=== PATIENT | female | born 1965 | race Caucasian/White ===

== ENCOUNTER 2017-12-23 12:29 | Emergency (ER) | payer MEDICARE, MEDICAID ==
[~2017-12-23] VITALS: Ht 172.7 cm; Wt 90.9 kg
[~2017-12-23 12:29] MED LIST: ALBU8.5H8 IH; ALPR0.5T8 PO; ALPR1TAB2 PO; ASPI-845 PO; CHOL50004 PO; FLUT1DIS4 INH; HYDR-565 PO; METH-603 PO; OMEG1CAP PO; OMEP20CA10 PO; PRED20TA PO; SPIIN IH; SUMA100T PO
[2017-12-23] MEDS ORDERED: TETanus/Pertussis (Acell)/Diphther VAC/PF (Tdap-Adult) 0.5ml syringe IM ONE (13:35)
[2017-12-23 14:06] LABS: WHITE BLOOD COUNT 7.4 X10'3 (4.5-11.0)
[2017-12-23 14:15] LABS: ALANINE AMINOTRANSFERASE 25 U/L (12-78); ALBUMIN 3.4 G/DL (3.4-5.0); ALBUMIN/GLOBULIN RATIO 0.9 (1.1-1.5); ALKALINE PHOSPHATASE 124 IU/L (46-116); ANION GAP 10 (8-16); ASPARTATE AMINO TRANSFERASE 14 U/L (10-37); BILIRUBIN,TOTAL 0.3 MG/DL (0.1-1.0); BLOOD UREA NITROGEN 8 MG/DL (7-18); BUN/CREATININE RATIO 9.8 (6.6-38.0); CALCIUM 8.7 MG/DL (8.5-10.1); CHLORIDE 108 MMOL/L (99-107); CREATININE 0.82 MG/DL (0.40-0.90); GLUCOSE 111 MG/DL (70-104); POTASSIUM 4.1 MMOL/L (3.5-5.1); SODIUM 145 MMOL/L (135-145); TOTAL CARBON DIOXIDE 26.7 MMOL/L (24-32); TOTAL PROTEIN 7.1 G/DL (6.4-8.2); eGFR 73 ML/MIN
[2017-12-23 14:23] LABS: ETHANOL 0.229 GM/DL (0.0-0.010)
[2017-12-23 14:29] LABS: HEMATOCRIT 49.9 % (35.0-45.0); HEMOGLOBIN 16.8 g/dl (12.0-16.0); MEAN CORPUSCULAR HEMOGLOBIN 30.2 PG (27.0-31.0); MEAN CORPUSCULAR HGB CONC 33.6 % (33.0-36.5); MEAN CORPUSCULAR VOLUME 89.7 FL (78-98); PLATELET COUNT 467 X10'3 (140-440); RED BLOOD COUNT 5.56 X10'6 (4.20-5.60); RED CELL DISTRIBUTION WIDTH 16.5 % (11.5-14.5)
[2017-12-23 14:30] LABS: MEAN PLATELET VOLUME 7.9 FL (7.4-10.4)
[2017-12-23 15:07] LABS: ANISOCYTOSIS 1+; LARGE PLATELETS FEW; NUCLEATED RED BLOOD CELLS 1 /100WBC (0-0); PLATELET ESTIMATE INCREASED; TOTAL CELLS COUNTED 100
[2017-12-23 15:46] LABS: CLARITY,URINE CLEAR (Clear); COLOR,URINE STRAW (Yellow); GLUCOSE, URINE NEGATIVE (Neg); KETONES,URINE NEGATIVE (Neg); LEUKOCYTE ESTERASE ,URINE NEGATIVE (Neg); NITRITES, URINE NEGATIVE (Neg); OCCULT BLOOD,URINE NEGATIVE (Neg); PROTEIN,URINE NEGATIVE (Neg); UROBILINOGEN,URINE 0.2 E.U/dL (0.2-1.0)
[2017-12-23 15:49] LABS: UA COLLECTION TYPE VOIDED
[2017-12-23 15:51] LABS: URINE HCG NEGATIVE (NEG)
[2017-12-23 15:56] LABS: URINE AMPHETAMINE SCREEN NEGATIVE (Neg); URINE BARBITUATE SCREEN NEGATIVE (Neg); URINE BENZODIAZEPINES SCREEN POSITIVE (Neg); URINE CANNABINOID SCREEN POSITIVE (Neg); URINE COCAINE SCREEN NEGATIVE (Neg); URINE METHADONE SCREEN NEGATIVE (Neg); URINE OPIATE SCREEN NEGATIVE (Neg); URINE PHENCYCLIDINE SCREEN NEGATIVE (Neg)
[2017-12-23 17:23] VITALS: BP 110/66
== END 2017-12-23 17:26 | disposition home or self-care (01) ==
LOC: ER 12:30
DX: S51.812A Laceration without foreign body of left forearm, initial encounter (principal); F32.9 Major depressive disorder, single episode, unspecified; F41.9 Anxiety disorder, unspecified; G89.29 Other chronic pain; M54.5 Low back pain; F10.920 Alcohol use, unspecified with intoxication, uncomplicated; G43.909 Migraine, unspecified, not intractable, without status migrainosus; J44.9 Chronic obstructive pulmonary disease, unspecified; Z90.710 Acquired absence of both cervix and uterus; Z88.6 Allergy status to analgesic agent; Z88.0 Allergy status to penicillin; Z88.2 Allergy status to sulfonamides; Z88.8 Allergy status to other drugs, medicaments and biological substances; Z91.048 Other nonmedicinal substance allergy status; Z79.82 Long term (current) use of aspirin; F12.90 Cannabis use, unspecified, uncomplicated; X78.1XXA Intentional self-harm by knife, initial encounter; Y93.89 Activity, other specified; Y92.89 Other specified places as the place of occurrence of the external cause; Y99.8 Other external cause status
CPT/HCPCS: 36415; 80053; 80305; 80320; 81003; 81025; 84443; 85025; 99284

== ENCOUNTER 2018-01-23 12:41 | Emergency (ER) | payer MEDICARE, MEDICAID ==
[~2018-01-23] VITALS: Ht 167.6 cm; Wt 78.0 kg
[~2018-01-23 12:41] MED LIST changes: +HYDR-4353 PO; -HYDR-565 PO
[2018-01-23 13:21] LABS: BASOPHILS # (AUTO) 0.2 X10'3 (0-0.2); BASOPHILS % (AUTO) 1.8 % (0-1); EOSINOPHILS % (AUTO) 0.1 % (0-6); HEMATOCRIT 49.6 % (35.0-45.0); HEMOGLOBIN 16.5 g/dl (12.0-16.0); LYMPHOCYTES # (AUTO) 2.8 X10'3 (1.1-4.8); LYMPHOCYTES % (AUTO) 27.6 % (21-51); MEAN CORPUSCULAR HGB CONC 33.2 % (33.0-36.5); MEAN CORPUSCULAR VOLUME 90.2 FL (78-98); MEAN PLATELET VOLUME 8.4 FL (7.4-10.4); MONOCYTES # (AUTO) 1.2 X10'3 (0-0.9); MONOCYTES % (AUTO) 12.1 % (2-12); NEUTROPHILS # (AUTO) 5.9 X10'3 (1.8-7.7); NEUTROPHILS % (AUTO) 58.4 % (42-75); PLATELET COUNT 521 X10'3 (140-440); RED CELL DISTRIBUTION WIDTH 17.4 % (11.5-14.5); WHITE BLOOD COUNT 10.1 X10'3 (4.5-11.0)
[2018-01-23 13:45] LABS: ALANINE AMINOTRANSFERASE 34 U/L (12-78); ALBUMIN 3.9 G/DL (3.4-5.0); ALBUMIN/GLOBULIN RATIO 1.1 (1.1-1.5); ALKALINE PHOSPHATASE 94 IU/L (46-116); ANION GAP 11 (8-16); ASPARTATE AMINO TRANSFERASE 23 U/L (10-37); BILIRUBIN,TOTAL 0.7 MG/DL (0.1-1.0); BLOOD UREA NITROGEN 10 MG/DL (7-18); BUN/CREATININE RATIO 11.8 (6.6-38.0); CALCIUM 9.3 MG/DL (8.5-10.1); CHLORIDE 104 MMOL/L (99-107); CREATININE 0.85 MG/DL (0.40-0.90); ETHANOL < 0.010 GM/DL (0.0-0.010); GLUCOSE 123 MG/DL (70-104); SODIUM 143 MMOL/L (135-145); TOTAL CARBON DIOXIDE 27.7 MMOL/L (24-32); TOTAL PROTEIN 7.6 G/DL (6.4-8.2); eGFR 70 ML/MIN
[2018-01-23 13:59] LABS: URINE HCG NEGATIVE (NEG)
[2018-01-23 14:00] LABS: CLARITY,URINE SLIGHTLY CLOUDY (Clear); COLOR,URINE YELLOW (Yellow); GLUCOSE, URINE NEGATIVE (Neg); KETONES,URINE 15 mg/dl (Neg); LEUKOCYTE ESTERASE ,URINE NEGATIVE (Neg); NITRITES, URINE NEGATIVE (Neg); OCCULT BLOOD,URINE NEGATIVE (Neg); PROTEIN,URINE NEGATIVE (Neg); UROBILINOGEN,URINE 0.2 E.U/dL (0.2-1.0)
[2018-01-23] MEDS ORDERED: potassium Cl 20 mEq SR tablet PO ONE (14:00)
[2018-01-23 14:01] LABS: UA COLLECTION TYPE CLN CATCH MIDSTREAM
[2018-01-23] MEDS ORDERED: GABA-530 PO (14:10)
[2018-01-23] MEDS ORDERED: FURO-150 PO (14:10)
[2018-01-23] MEDS ORDERED: AMIT-1 (14:10)
[2018-01-23 14:11] LABS: BACTERIA,URINE FEW /HPF (Neg); RBC,URINE 0-2 /HPF (0-2); WBC,URINE 0-4 /HPF (0-4)
[2018-01-23 14:12] LABS: MUCUS STRANDS MANY /LPF (Neg); SQUAMOUS EPITHELIAL CELL,UR MODERATE /LPF (FEW)
[2018-01-23 14:18] LABS: URINE AMPHETAMINE SCREEN NEGATIVE (Neg); URINE BARBITUATE SCREEN NEGATIVE (Neg); URINE BENZODIAZEPINES SCREEN NEGATIVE (Neg); URINE CANNABINOID SCREEN NEGATIVE (Neg); URINE COCAINE SCREEN NEGATIVE (Neg); URINE METHADONE SCREEN NEGATIVE (Neg); URINE OPIATE SCREEN NEGATIVE (Neg); URINE PHENCYCLIDINE SCREEN NEGATIVE (Neg)
== END 2018-01-23 15:25 | disposition home or self-care (01) ==
LOC: ER 12:42
DX: R56.9 Unspecified convulsions (principal); R44.0 Auditory hallucinations; R44.1 Visual hallucinations; T43.015A Adverse effect of tricyclic antidepressants, initial encounter; E87.6 Hypokalemia; Y92.89 Other specified places as the place of occurrence of the external cause; D58.2 Other hemoglobinopathies; R71.8 Other abnormality of red blood cells; G43.909 Migraine, unspecified, not intractable, without status migrainosus; J44.9 Chronic obstructive pulmonary disease, unspecified; G89.29 Other chronic pain; Z90.710 Acquired absence of both cervix and uterus; Z88.0 Allergy status to penicillin; Z88.2 Allergy status to sulfonamides; Z88.5 Allergy status to narcotic agent; Z79.82 Long term (current) use of aspirin; Z79.899 Other long term (current) drug therapy
CPT/HCPCS: 36415; 70450; 80053; 80305; 80320; 81001; 81025; 84443; 85025; 99285

== ENCOUNTER 2018-01-27 09:17 | Emergency (ER) | payer MEDICARE, MEDICAID ==
[~2018-01-27] VITALS: Ht 167.6 cm; Wt 79.5 kg
[~2018-01-27 09:17] MED LIST changes: -ALPR0.5T8 PO; -ALPR1TAB2 PO; +FURO-150 PO; -HYDR-4353 PO; -METH-603 PO; -OMEG1CAP PO; -PRED20TA PO; -SUMA100T PO
[2018-01-27] MEDS ORDERED: LORazepam 1 MG tablet PO ONE (10:05)
[2018-01-27 10:37] LABS: BASOPHILS # (AUTO) 0.2 X10'3 (0-0.2); BASOPHILS % (AUTO) 1.1 % (0-1); EOSINOPHILS % (AUTO) 0.1 % (0-6); HEMATOCRIT 50.2 % (35.0-45.0); HEMOGLOBIN 16.7 g/dl (12.0-16.0); LYMPHOCYTES # (AUTO) 3.8 X10'3 (1.1-4.8); MEAN CORPUSCULAR HEMOGLOBIN 30.1 PG (27.0-31.0); MEAN CORPUSCULAR HGB CONC 33.2 % (33.0-36.5); MEAN CORPUSCULAR VOLUME 90.9 FL (78-98); MEAN PLATELET VOLUME 8.8 FL (7.4-10.4); MONOCYTES # (AUTO) 0.8 X10'3 (0-0.9); MONOCYTES % (AUTO) 5.2 % (2-12); NEUTROPHILS # (AUTO) 9.8 X10'3 (1.8-7.7); NEUTROPHILS % (AUTO) 67.6 % (42-75); PLATELET COUNT 451 X10'3 (140-440); RED BLOOD COUNT 5.53 X10'6 (4.20-5.60); RED CELL DISTRIBUTION WIDTH 16.8 % (11.5-14.5); WHITE BLOOD COUNT 14.6 X10'3 (4.5-11.0)
[2018-01-27 10:46] LABS: ALANINE AMINOTRANSFERASE 43 U/L (12-78); ALBUMIN 4.2 G/DL (3.4-5.0); ALBUMIN/GLOBULIN RATIO 1.2 (1.1-1.5); ALKALINE PHOSPHATASE 86 IU/L (46-116); ANION GAP 12 (8-16); ASPARTATE AMINO TRANSFERASE 24 U/L (10-37); BILIRUBIN,TOTAL 0.7 MG/DL (0.1-1.0); BLOOD UREA NITROGEN 24 MG/DL (7-18); BUN/CREATININE RATIO 14.5 (6.6-38.0); CALCIUM 10.1 MG/DL (8.5-10.1); CHLORIDE 101 MMOL/L (99-107); CREATININE 1.65 MG/DL (0.40-0.90); GLUCOSE 105 MG/DL (70-104); POTASSIUM 3.4 MMOL/L (3.5-5.1); SODIUM 143 MMOL/L (135-145); TOTAL CARBON DIOXIDE 29.8 MMOL/L (24-32); TOTAL PROTEIN 7.8 G/DL (6.4-8.2); eGFR 33 ML/MIN
[2018-01-27 10:54] LABS: ETHANOL < 0.010 GM/DL (0.0-0.010)
[2018-01-27] MEDS ORDERED: normal saline 1000ML IV soln IV ONE (10:55)
[2018-01-27 12:05] LABS: CLARITY,URINE SLIGHTLY CLOUDY (Clear); COLOR,URINE YELLOW (Yellow); GLUCOSE, URINE NEGATIVE (Neg); KETONES,URINE TRACE mg/dl (Neg); LEUKOCYTE ESTERASE ,URINE NEGATIVE (Neg); NITRITES, URINE NEGATIVE (Neg); OCCULT BLOOD,URINE NEGATIVE (Neg); PROTEIN,URINE TRACE mg/dl (Neg); UROBILINOGEN,URINE 0.2 E.U/dL (0.2-1.0)
[2018-01-27 12:12] LABS: UA COLLECTION TYPE STRAIGHT CATH
[2018-01-27 12:14] LABS: URINE AMPHETAMINE SCREEN NEGATIVE (Neg); URINE BARBITUATE SCREEN NEGATIVE (Neg); URINE BENZODIAZEPINES SCREEN POSITIVE (Neg); URINE CANNABINOID SCREEN NEGATIVE (Neg); URINE COCAINE SCREEN NEGATIVE (Neg); URINE METHADONE SCREEN NEGATIVE (Neg); URINE OPIATE SCREEN NEGATIVE (Neg); URINE PHENCYCLIDINE SCREEN NEGATIVE (Neg)
[2018-01-27 12:25] LABS: BACTERIA,URINE 2+ /HPF (Neg); RBC,URINE 0-2 /HPF (0-2); SQUAMOUS EPITHELIAL CELL,UR FEW /LPF (FEW)
[2018-01-27 12:26] LABS: AMORPHOUS URATES 1+
[2018-01-27] MEDS ORDERED: levoFLOXACIN 250mg tablet PO SCH (16:00)
[2018-01-27 18:20] VITALS: BP 127/62
[2018-01-27] MEDS ORDERED: ibuprofen 200mg tablet PO ONE (19:30)
[2018-01-27] MEDS ORDERED: TIOT18CA3 INH (20:29)
[2018-01-27] MEDS ORDERED: FLUT1DIS4 INH (20:29)
== END 2018-01-27 19:39 | disposition home or self-care (01) ==
LOC: ER 09:18
DX: F23 Brief psychotic disorder (principal); R45.851 Suicidal ideations; R44.3 Hallucinations, unspecified; R41.0 Disorientation, unspecified; G43.909 Migraine, unspecified, not intractable, without status migrainosus; J44.9 Chronic obstructive pulmonary disease, unspecified; G89.29 Other chronic pain; Z98.890 Other specified postprocedural states; Z90.710 Acquired absence of both cervix and uterus; Z88.0 Allergy status to penicillin; Z88.2 Allergy status to sulfonamides; Z88.5 Allergy status to narcotic agent; Z79.82 Long term (current) use of aspirin; Z79.899 Other long term (current) drug therapy
CPT/HCPCS: 36415; 71045; 80053; 80305; 80320; 81001; 83605; 84145; 84443; 85025; 87040; 99285; P9612

== ENCOUNTER 2018-01-27 18:10 | Inpatient (IN) | payer MEDICARE, MEDICAID ==
[~2018-01-27] VITALS: Ht 165.1 cm; Wt 78.5 kg
[2018-01-27 20:00] VITALS: BP 115/41
[2018-01-27] MEDS ORDERED: FLUT1DIS4 INH (20:29)
[2018-01-27] MEDS ORDERED: TIOT18CA3 INH (20:29)
[2018-01-27] MEDS ORDERED: albuterol 2.5 MG/3 ML nebule NEB PRN (20:50)
[2018-01-27] MEDS ORDERED: albuterol 2.5 MG/3 ML nebule NEB SCH (21:00)
[2018-01-27] MEDS ORDERED: OLANZapine 2.5MG tablet PO SCH (21:00)
[2018-01-27] MEDS ORDERED: LORazepam 0.5 MG tablet PO PRN (21:15)
[2018-01-27] MEDS ORDERED: olanzapine 10mg tablet PO ONE (22:55)
[2018-01-28] MEDS ORDERED: temazepam 15mg capsule PO ONE ×2 (02:30→23:45)
[2018-01-28] MEDS: ipratropium/albuterol 3ml nebule NEB SCH ×4 (07:00→19:00)
[2018-01-28] MEDS: BUDESONIDE 0.25 MG/2 ML AMPUL.NEB IH SCH ×2 (07:22→19:16)
[2018-01-28 08:00] VITALS: BP 111/45
[2018-01-28] MEDS ORDERED: olanzapine 10mg tablet PO SCH (08:00)
[2018-01-28] MEDS: aspirin 325mg tablet, delayed-release (Ecotrin) PO SCH (08:07)
[2018-01-28] MEDS: pantoprazole 40mg Tablet.DR PO SCH ×2 (08:07→20:37)
[2018-01-28] MEDS: vitamin D (cholecalciferol) 1,000 unit tablet PO SCH (08:07)
[2018-01-28] MEDS: furosemide 20MG tablet PO SCH (08:09)
[2018-01-28] MEDS ORDERED: pneumococcal 23-VAL P-sac vacc 25 mcg/0.5ml vial IMVAC ONE ×2 (09:00→10:40)
[2018-01-28 12:34] LABS: BASOPHILS % (AUTO) 0.4 % (0-1); EOSINOPHILS # (AUTO) 0.1 X10'3 (0-0.9); HEMATOCRIT 44.7 % (35.0-45.0); HEMOGLOBIN 14.4 g/dl (12.0-16.0); LYMPHOCYTES # (AUTO) 4.3 X10'3 (1.1-4.8); LYMPHOCYTES % (AUTO) 46.5 % (21-51); MEAN CORPUSCULAR HEMOGLOBIN 29.7 PG (27.0-31.0); MEAN CORPUSCULAR HGB CONC 32.3 % (33.0-36.5); MEAN PLATELET VOLUME 8.6 FL (7.4-10.4); MONOCYTES # (AUTO) 0.7 X10'3 (0-0.9); NEUTROPHILS # (AUTO) 4.2 X10'3 (1.8-7.7); NEUTROPHILS % (AUTO) 45.1 % (42-75); PLATELET COUNT 369 X10'3 (140-440); RED BLOOD COUNT 4.85 X10'6 (4.20-5.60); RED CELL DISTRIBUTION WIDTH 17.7 % (11.5-14.5); WHITE BLOOD COUNT 9.3 X10'3 (4.5-11.0)
[2018-01-28] MEDS ORDERED: OLANZapine 5mg rapidly disint. tablet PO ONE (12:50)
[2018-01-28 13:01] LABS: ALANINE AMINOTRANSFERASE 40 U/L (12-78); ALBUMIN 3.6 G/DL (3.4-5.0); ALBUMIN/GLOBULIN RATIO 1.1 (1.1-1.5); ALKALINE PHOSPHATASE 85 IU/L (46-116); ANION GAP 13 (8-16); ASPARTATE AMINO TRANSFERASE 24 U/L (10-37); BILIRUBIN,TOTAL 0.4 MG/DL (0.1-1.0); BLOOD UREA NITROGEN 12 MG/DL (7-18); BUN/CREATININE RATIO 12.9 (6.6-38.0); CHLORIDE 104 MMOL/L (99-107); CREATININE 0.93 MG/DL (0.40-0.90); GLUCOSE 150 MG/DL (70-104); POTASSIUM 3.1 MMOL/L (3.5-5.1); SODIUM 141 MMOL/L (135-145); TOTAL CARBON DIOXIDE 23.9 MMOL/L (24-32); TOTAL PROTEIN 6.8 G/DL (6.4-8.2); eGFR 63 ML/MIN
[2018-01-28] MEDS ORDERED: potassium Cl 20 mEq SR tablet PO PRN ×2 (14:30)
[2018-01-28 20:00] VITALS: BP 155/92
[2018-01-28] MEDS: olanzapine 10mg tablet PO SCH (20:38)
[2018-01-28] MEDS ORDERED: BUDESONIDE 0.25 MG/2 ML AMPUL.NEB IH PRN (21:05)
[2018-01-28] MEDS ORDERED: ipratropium/albuterol 3ml nebule NEB PRN (21:05)
[2018-01-28] MEDS ORDERED: temazepam 15mg capsule PO PRN (23:50)
[2018-01-29] MEDS ORDERED: temazepam 15mg capsule PO ONE (02:15)
[2018-01-29] MEDS: aspirin 325mg tablet, delayed-release (Ecotrin) PO SCH (07:44)
[2018-01-29] MEDS: pantoprazole 40mg Tablet.DR PO SCH ×2 (07:44→20:51)
[2018-01-29] MEDS: furosemide 20MG tablet PO SCH (07:45)
[2018-01-29] MEDS: vitamin D (cholecalciferol) 1,000 unit tablet PO SCH (07:45)
[2018-01-29 08:30] VITALS: BP 117/51
[2018-01-29] MEDS: LORazepam 1 MG tablet PO PRN ×2 (13:51→23:51)
[2018-01-29 19:00] VITALS: BP 121/67
[2018-01-29] MEDS: olanzapine 10mg tablet PO SCH (20:51)
[2018-01-29] MEDS ORDERED: traZODone 50mg tablet PO ONE (21:15)
[2018-01-29] MEDS ORDERED: OLANZapine 2.5MG tablet PO ONE (21:15)
[2018-01-29] MEDS ORDERED: divalproex sodium 500mg tablet.DR PO ONE (23:40)
[2018-01-30] MEDS ORDERED: divalproex sodium 500mg tablet.DR PO ONE (01:20)
[2018-01-30] MEDS: furosemide 20MG tablet PO SCH (07:44)
[2018-01-30] MEDS: pantoprazole 40mg Tablet.DR PO SCH ×2 (07:44→20:29)
[2018-01-30] MEDS: aspirin 325mg tablet, delayed-release (Ecotrin) PO SCH (07:45)
[2018-01-30] MEDS: vitamin D (cholecalciferol) 1,000 unit tablet PO SCH (07:45)
[2018-01-30] MEDS: nicotine 21mg patch - 24 hr TD SCH (07:45)
[2018-01-30 08:09] VITALS: BP 150/53
[2018-01-30 09:23] LABS: MAGNESIUM 1.8 MG/DL (1.5-2.4); POTASSIUM 3.9 MMOL/L (3.5-5.1)
[2018-01-30] MEDS: LORazepam 1 MG tablet PO PRN ×2 (12:21→18:36)
[2018-01-30 20:00] VITALS: BP 111/72
[2018-01-30] MEDS: olanzapine 10mg tablet PO SCH (20:29)
[2018-01-30] MEDS: divalproex sodium 500mg tablet.DR PO SCH (20:29)
[2018-01-30] MEDS: OLANZapine 5mg rapidly disint. tablet PO SCH (20:29)
[2018-01-31] MEDS: LORazepam 1 MG tablet PO PRN (00:50)
[2018-01-31 07:33] LABS: MAGNESIUM 1.9 MG/DL (1.5-2.4); POTASSIUM 4.3 MMOL/L (3.5-5.1)
[2018-01-31 08:00] VITALS: BP 113/61
[2018-01-31] MEDS: aspirin 325mg tablet, delayed-release (Ecotrin) PO SCH (08:16)
[2018-01-31] MEDS: furosemide 20MG tablet PO SCH (08:16)
[2018-01-31] MEDS: pantoprazole 40mg Tablet.DR PO SCH ×2 (08:16→21:25)
[2018-01-31] MEDS: vitamin D (cholecalciferol) 1,000 unit tablet PO SCH (08:16)
[2018-01-31] MEDS: nicotine 21mg patch - 24 hr TD SCH (08:17)
[2018-01-31 19:00] VITALS: BP 110/60
[2018-01-31] MEDS: divalproex sodium 500mg tablet.DR PO SCH (21:21)
[2018-01-31] MEDS: olanzapine 10mg tablet PO SCH (21:21)
[2018-01-31] MEDS: OLANZapine 5mg rapidly disint. tablet PO SCH (21:22)
[2018-01-31] MEDS: HYDROcodone/acetaminophen 10/325mg tab PO PRN (23:39)
[2018-02-01] MEDS: LORazepam 1 MG tablet PO PRN ×2 (01:20→10:46)
[2018-02-01 08:00] VITALS: BP 109/69
[2018-02-01 08:10] LABS: MAGNESIUM 1.7 MG/DL (1.5-2.4); POTASSIUM 3.9 MMOL/L (3.5-5.1)
[2018-02-01] MEDS: aspirin 325mg tablet, delayed-release (Ecotrin) PO SCH (08:21)
[2018-02-01] MEDS: furosemide 20MG tablet PO SCH (08:21)
[2018-02-01] MEDS: vitamin D (cholecalciferol) 1,000 unit tablet PO SCH (08:21)
[2018-02-01] MEDS: pantoprazole 40mg Tablet.DR PO SCH ×2 (08:21→21:35)
[2018-02-01] MEDS: nicotine 21mg patch - 24 hr TD SCH (08:24)
[2018-02-01] MEDS: HYDROcodone/acetaminophen 10/325mg tab PO PRN (09:49)
[2018-02-01] MEDS ORDERED: NICOTINE POLACRILEX 4 MG LOZENGE BC PRN (17:15)
[2018-02-01 20:00] VITALS: BP 114/75
[2018-02-01] MEDS: divalproex sodium 500mg tablet.DR PO SCH (21:34)
[2018-02-01] MEDS: olanzapine 10mg tablet PO SCH (21:34)
[2018-02-01] MEDS: temazepam 15mg capsule PO SCH (21:34)
[2018-02-01] MEDS: OLANZapine 5mg rapidly disint. tablet PO SCH (21:35)
[2018-02-02 06:04] LABS: POTASSIUM 4.6 MMOL/L (3.5-5.1)
[2018-02-02] MEDS: vitamin D (cholecalciferol) 1,000 unit tablet PO SCH (07:55)
[2018-02-02] MEDS: pantoprazole 40mg Tablet.DR PO SCH ×2 (07:56→20:17)
[2018-02-02] MEDS: furosemide 20MG tablet PO SCH (07:56)
[2018-02-02] MEDS: aspirin 325mg tablet, delayed-release (Ecotrin) PO SCH (07:56)
[2018-02-02] MEDS: nicotine 21mg patch - 24 hr TD SCH (07:56)
[2018-02-02] MEDS: divalproex sodium 500mg tablet.DR PO SCH ×2 (07:56→20:17)
[2018-02-02 08:00] VITALS: BP 101/56
[2018-02-02] MEDS: NICOTINE POLACRILEX 2 MG LOZENGE MM PRN (08:53)
[2018-02-02] MEDS: HYDROcodone/acetaminophen 10/325mg tab PO PRN ×2 (10:21→16:23)
[2018-02-02 20:00] VITALS: BP 126/68
[2018-02-02] MEDS: temazepam 15mg capsule PO SCH (20:16)
[2018-02-02] MEDS: OLANZapine 5mg rapidly disint. tablet PO SCH (20:17)
[2018-02-02] MEDS: olanzapine 10mg tablet PO SCH (20:17)
[2018-02-02] MEDS: LORazepam 1 MG tablet PO PRN (22:21)
[2018-02-03 08:00] VITALS: BP 112/72
[2018-02-03] MEDS: vitamin D (cholecalciferol) 1,000 unit tablet PO SCH (08:05)
[2018-02-03] MEDS: furosemide 20MG tablet PO SCH (08:05)
[2018-02-03] MEDS: aspirin 325mg tablet, delayed-release (Ecotrin) PO SCH (08:05)
[2018-02-03] MEDS: pantoprazole 40mg Tablet.DR PO SCH ×2 (08:05→20:34)
[2018-02-03] MEDS: nicotine 21mg patch - 24 hr TD SCH (08:06)
[2018-02-03] MEDS: divalproex sodium 500mg tablet.DR PO SCH ×2 (08:10→20:59)
[2018-02-03] MEDS: HYDROcodone/acetaminophen 10/325mg tab PO PRN ×2 (10:39→18:01)
[2018-02-03 20:04] VITALS: BP 106/64
[2018-02-03] MEDS: temazepam 15mg capsule PO SCH (20:59)
[2018-02-03] MEDS: OLANZapine 5mg rapidly disint. tablet PO SCH (20:59)
[2018-02-03] MEDS: olanzapine 10mg tablet PO SCH (20:59)
[2018-02-04] MEDS: LORazepam 1 MG tablet PO PRN (00:56)
[2018-02-04] MEDS: vitamin D (cholecalciferol) 1,000 unit tablet PO SCH (07:30)
[2018-02-04] MEDS: aspirin 325mg tablet, delayed-release (Ecotrin) PO SCH (07:31)
[2018-02-04] MEDS: furosemide 20MG tablet PO SCH (07:31)
[2018-02-04] MEDS: pantoprazole 40mg Tablet.DR PO SCH ×2 (07:31→20:54)
[2018-02-04] MEDS: divalproex sodium 500mg tablet.DR PO SCH ×2 (07:31→20:53)
[2018-02-04] MEDS: nicotine 21mg patch - 24 hr TD SCH (07:32)
[2018-02-04 08:00] VITALS: BP 122/71
[2018-02-04] MEDS: NICOTINE POLACRILEX 2 MG LOZENGE MM PRN (13:37)
[2018-02-04] MEDS: HYDROcodone/acetaminophen 10/325mg tab PO PRN ×2 (14:30→20:56)
[2018-02-04] MEDS ORDERED: nicotine 21mg patch - 24 hr TD ONE ×2 (15:20→16:35)
[2018-02-04 20:00] VITALS: BP 122/71
[2018-02-04] MEDS: OLANZapine 5mg rapidly disint. tablet PO SCH (20:54)
[2018-02-04] MEDS: temazepam 15mg capsule PO SCH (20:54)
[2018-02-04] MEDS: olanzapine 10mg tablet PO SCH (20:54)
[2018-02-04] MEDS: propranolol 10mg tablet PO SCH (20:55)
[2018-02-05] MEDS: LORazepam 1 MG tablet PO PRN ×3 (04:00→19:39)
[2018-02-05] MEDS: nicotine 21mg patch - 24 hr TD SCH (08:00)
[2018-02-05 08:12] VITALS: BP 107/74
[2018-02-05] MEDS: divalproex sodium 500mg tablet.DR PO SCH ×2 (08:20→20:27)
[2018-02-05] MEDS: pantoprazole 40mg Tablet.DR PO SCH ×2 (08:20→20:28)
[2018-02-05] MEDS: aspirin 325mg tablet, delayed-release (Ecotrin) PO SCH (08:21)
[2018-02-05] MEDS: furosemide 20MG tablet PO SCH (08:21)
[2018-02-05] MEDS: propranolol 10mg tablet PO SCH ×2 (08:22→20:28)
[2018-02-05] MEDS: vitamin D (cholecalciferol) 1,000 unit tablet PO SCH (08:50)
[2018-02-05] MEDS: HYDROcodone/acetaminophen 10/325mg tab PO PRN (18:56)
[2018-02-05 20:00] VITALS: BP 106/73
[2018-02-05] MEDS ORDERED: TEMA30CA PO (20:11)
[2018-02-05] MEDS ORDERED: OMEP20CA10 PO (20:11)
[2018-02-05] MEDS ORDERED: OLAN20TA16 PO (20:11)
[2018-02-05] MEDS ORDERED: ATI1T PO (20:11)
[2018-02-05] MEDS ORDERED: HYDR-3972 PO (20:11)
[2018-02-05] MEDS ORDERED: DIVA500T2 PO (20:11)
[2018-02-05] MEDS ORDERED: PROP10TA10 PO (20:23)
[2018-02-05] MEDS: OLANZapine 5mg rapidly disint. tablet PO SCH (20:27)
[2018-02-05] MEDS: olanzapine 10mg tablet PO SCH (20:27)
[2018-02-05] MEDS: temazepam 15mg capsule PO SCH (20:28)
== END 2018-02-05 20:50 | disposition home or self-care (01) | DRG 885 ==
LOC: ADULT MH 18:10
PROVIDERS: ADMIT Psychiatry & Neurology Psychiatry; ATTEND Psychiatry & Neurology Psychiatry
DX: F23 Brief psychotic disorder (principal); F13.231 Sedative, hypnotic or anxiolytic dependence with withdrawal delirium; R45.851 Suicidal ideations; F11.23 Opioid dependence with withdrawal; G40.909 Epilepsy, unspecified, not intractable, without status epilepticus; E87.6 Hypokalemia; J44.9 Chronic obstructive pulmonary disease, unspecified; F31.9 Bipolar disorder, unspecified; F41.9 Anxiety disorder, unspecified; F17.210 Nicotine dependence, cigarettes, uncomplicated; G43.909 Migraine, unspecified, not intractable, without status migrainosus; M54.2 Cervicalgia; D72.829 Elevated white blood cell count, unspecified; G89.21 Chronic pain due to trauma; K21.9 Gastro-esophageal reflux disease without esophagitis; Z90.710 Acquired absence of both cervix and uterus; Z79.899 Other long term (current) drug therapy; Z88.6 Allergy status to analgesic agent; Z88.0 Allergy status to penicillin; Z88.2 Allergy status to sulfonamides; Z88.5 Allergy status to narcotic agent; Z91.030 Bee allergy status; Z91.048 Other nonmedicinal substance allergy status; Z82.5 Family history of asthma and other chronic lower respiratory diseases; Z81.1 Family history of alcohol abuse and dependence; Z82.49 Family history of ischemic heart disease and other diseases of the circulatory system; Z23 Encounter for immunization
CPT/HCPCS: 36415; 80053; 83735; 84132; 85025; 87070; 90732; 93005; 94640; 94760; 99285; 99406; J3490; Q2037

== ENCOUNTER 2018-06-29 14:25 | Emergency (ER) | payer MEDICARE, MEDICAID ==
[~2018-06-29] VITALS: Ht 167.6 cm; Wt 67.0 kg
[~2018-06-29 14:25] MED LIST changes: -ALBU8.5H8 IH; -ASPI-845 PO; +ATI1T PO; -CHOL50004 PO; +DIVA500T2 PO; -FLUT1DIS4 INH; -FURO-150 PO; +HYDR-3972 PO; +OLAN20TA16 PO; -SPIIN IH; +TEMA30CA PO
[2018-06-29] MEDS ORDERED: LIDOcaine 1% 30ml preserv. free vial IJ ONE (15:10)
[2018-06-29] MEDS ORDERED: TETanus/Pertussis (Acell)/Diphther VAC/PF (Tdap-Adult) 0.5ml syringe IM ONE (15:10)
[2018-06-29] MEDS ORDERED: traMADol 50MG tablet PO ONE (15:45)
[2018-06-29 16:08] VITALS: BP 139/69
== END 2018-06-29 16:10 | disposition home or self-care (01) ==
LOC: ER 14:26
DX: S61.211A Laceration without foreign body of left index finger without damage to nail, initial encounter (principal); J44.9 Chronic obstructive pulmonary disease, unspecified; G43.909 Migraine, unspecified, not intractable, without status migrainosus; G89.29 Other chronic pain; M54.9 Dorsalgia, unspecified; Z90.710 Acquired absence of both cervix and uterus; Z88.6 Allergy status to analgesic agent; Z88.0 Allergy status to penicillin; Z88.2 Allergy status to sulfonamides; Z88.8 Allergy status to other drugs, medicaments and biological substances; Z91.048 Other nonmedicinal substance allergy status; W45.8XXA Other foreign body or object entering through skin, initial encounter; Y93.89 Activity, other specified; Y92.89 Other specified places as the place of occurrence of the external cause; Y99.8 Other external cause status
CPT/HCPCS: 12001; 90471; 90715; 99283; J3490